=== PATIENT | female | born 1940 | race Caucasian/White ===

== ENCOUNTER 2019-07-06 15:05 | Inpatient (IN) ==
[2019-07-06] MEDS ORDERED: DILTIAZEM 50 MG/10 ML VIAL IV STA ×2 (15:57→17:14)
[2019-07-06 16:45] LABS: Basophils % 0.5 % (0.0-0.8); Eosinophils % 0.3 % (0.00-10.9); Hematocrit 37.9 VOL% (35.7-47.0); Immature Granulocytes % 0.5 %; Immature Granulocytes Absolute 0.03 #; Lymphocytes # 1.7 10*3/uL (1.4-4.0); Lymphocytes % 27.7 % (21.3-54.2); Mean Corpuscular HGB Conc 31.7 GM/DL (32-36); Mean Corpuscular Volume 101.3 FL (87-102); Mean Platelet Volume 9.1 FL (9.6-12.0); Monocytes % 5.1 % (1.7-12.7); Neutrophils % 65.9 % (38.7-73.9); Platelet Count 186 T/CUMM (130-400); Red Blood Count 3.74 MC/CUMM (3.8-5.5); Red Cell Distribution Width 13.6 % (9.3-17.3); White Blood Count 6.3 T/CUMM (4-12)
[2019-07-06 16:56] LABS: INR 0.9; PT Patient Result 9.9 SECS; Partial Thromboplastin Time 23.5 SECS (0-40)
[2019-07-06 17:19] LABS: Albumin 3.6 G/DL (3.4-5.0); Bilirubin,Total 0.6 MG/DL (0.2-1.0); Calcium 8.7 MG/DL (8.5-10.1); Osmolality,Calculated 282.3 MOS/KG (273-304); Thyroid Stimulating Hormone 1.47 uIU/ml (0.358-3.74); Total Protein 6.9 G/DL (6.4-8.3)
[2019-07-06 18:30] LABS: Barbiturates Screen,Urine Negative (Negative); Benzodiazepines Screen,Urine Negative (Negative); Cannabinoid Screen,Urine Negative (Negative); Opiate Screen,Urine Negative (Negative); Phencyclidine Screen,Urine Negative (Negative)
[2019-07-06] MEDS ORDERED: ACETAMINOPHEN 325 MG TABLET PO PRN (18:55)
[2019-07-06] MEDS ORDERED: CETIRIZINE 10 MG TABLET PO PRN (18:58)
[2019-07-06] MEDS ORDERED: dilTIAZem Drip 125 MG/125 ML PREMIX IV SCH (19:00)
[2019-07-06 19:20] LABS: Risk Ratio 2.08; VLDL CHOLESTEROL 23.4 MG/DL
[2019-07-06] MEDS ORDERED: LABETALOL 20 MG/4 ML SYRINGE IV PRN (20:06)
[2019-07-06] MEDS ORDERED: SIMVASTATIN 40 MG TABLET PO SCH (21:00)
[2019-07-06] MEDS: ENOXAPARIN 60 MG/0.6 ML SYRINGE SUBCUT SCH (22:11)
[2019-07-06] MEDS ORDERED: MELATONIN 3 MG TABLET PO PRN (22:31)
[2019-07-07] MEDS ORDERED: ASPIRIN EC 81 MG TABLET PO SCH (09:00)
[2019-07-07] MEDS ORDERED: CITALOPRAM 20 MG TABLET PO SCH (09:00)
[2019-07-07] MEDS ORDERED: PANTOPRAZOLE 40 MG TABLET PO SCH (09:00)
[2019-07-07] MEDS: ENOXAPARIN 60 MG/0.6 ML SYRINGE SUBCUT SCH (09:24)
[2019-07-07] MEDS ORDERED: LOPERAMIDE 2 MG CAPSULE PO PRN (10:03)
[2019-07-07] MEDS ORDERED: METOPROLOL TARTRATE 25 MG TABLET PO SCH (12:02)
[2019-07-07] MEDS ORDERED: ASCORBIC ACID 500 MG TABLET PO SCH (12:30)
[2019-07-07] MEDS ORDERED: METOPROLOL TARTRATE 25 MG TABLET PO ONE (13:31)
[2019-07-07] MEDS ORDERED: MAGNESIUM SULF RIDER 2 GM in PREMIX 1 EACH IV PRN (13:38)
[2019-07-07] MEDS ORDERED: MAGNESIUM SULF RIDER 4 GM in PREMIX 1 EACH IV PRN (13:38)
[2019-07-07 16:02] VITALS: BP 132/90
[2019-07-07] MEDS ORDERED: METOPROLOL TARTRATE 50 MG TABLET PO SCH (21:00)
[2019-07-07] MEDS ORDERED: APIXABAN 5 MG TABLET PO SCH (21:00)
== END 2019-07-07 17:46 | disposition home health service (06) | DRG 310 ==
LOC: N.ED 15:05 → N.EDINP 18:55 → N.TELES 19:12
PROVIDERS: ADMIT Internal Medicine; ATTEND Internal Medicine